=== PATIENT | female | born 1975 | race Caucasian/White ===

== ENCOUNTER 2021-10-09 12:20 | Emergency (ER) | payer OTHER ==
[~2021-10-09] VITALS: Ht 165.1 cm; Wt 95.0 kg
[2021-10-09 12:21] VITALS: BP 160/84
== END 2021-10-09 12:31 | disposition left against medical advice (07) ==
LOC: MED 12:20
DX: R10.9 Unspecified abdominal pain (principal); Z53.21 Procedure and treatment not carried out due to patient leaving prior to being seen by health care provider